=== PATIENT | female | born 1975 | race Two or more races ===

== ENCOUNTER 2020-06-27 10:31 | Outpatient (REF) | payer MEDICARE, MEDICAID, SELFPAY | END 2020-06-27 10:32 | disposition home or self-care (01) | LOC: HO.LAB 10:31 | PROVIDERS: Visit Provider Internal Medicine | DX: Z20.822 Contact with and (suspected) exposure to COVID-19 (principal) | CPT/HCPCS: 36415; C9803; U0003; U0005 ==

== ENCOUNTER 2021-04-17 11:40 | Outpatient (REF) | payer MEDICARE, MEDICAID, SELFPAY | END 2021-04-17 11:41 | disposition home or self-care (01) | LOC: HO.LAB 11:40 | PROVIDERS: PCP Internal Medicine; Visit Provider Internal Medicine | DX: Z20.822 Contact with and (suspected) exposure to COVID-19 (principal) | CPT/HCPCS: C9803; U0003; U0005 ==

== ENCOUNTER 2021-05-21 11:56 | Outpatient (REF) | payer MEDICARE, MEDICAID, SELFPAY ==
[2021-05-21 15:43] LABS: Binax Internal Control QC Valid; Binax Lot number: 9864; Binax Now Covid-19 Ag Negative (Negative)
== END 2021-05-21 11:57 | disposition home or self-care (01) ==
LOC: HO.LAB 11:56
PROVIDERS: Visit Provider Internal Medicine
DX: Z20.822 Contact with and (suspected) exposure to COVID-19 (principal)
CPT/HCPCS: 36415

== ENCOUNTER 2022-02-14 09:02 | Emergency (ER) | payer MEDICARE, MEDICAID, SELFPAY ==
--- NOTE | ~2022-02-14 | CT_ITS ---
CT ANGIOGRAM BRAIN, HEAD CLINICAL INFORMATION: Headache. Right-sided numbness. History of aneurysm. COMPARISON: Head CT 8 04/08/2018. TECHNIQUE: Test bolus sequences followed by intravenous administration 75 mL of Omnipaque 350 intravenous contrast. Helical imaging was performed in the axial plane from the skull base to the vertex. Delayed postcontrast imaging of the head was also performed. The data was processed at the genetic technologist workstation for generation of MIP sequences. Three-dimensional volume rendered reformatted images were also generated at an offline 3-D workstation. The degree of stenosis determined by NASCET criteria. This CT examination was performed using dose optimization techniques as appropriate, variously including the following: *Automated exposure control *Adjustment of mA and/or kV according to patient size (this includes techniques or standardized protocols for targeted exams where dose is matched to indication/reason for exam; i.e. 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 No definite residual/recurrent aneurysm however assessment is very limited due to artifact from the surgical clips. A diagnostic cerebral angiogram could be obtained as clinically indicated for more definitive assessment. No significant arterial stenoses in no acute arterial occlusions. Mild hypoattenuation within the left parietal white matter is stable. If focal neurologic deficit persists, MRI would be more sensitive in evaluation. There is no intracranial hemorrhage, hydrocephalus, extra-axial surface collection, midline shift, or other herniation pattern. Chen to white matter differentiation is diffusely maintained without evidence of an evolved acute territorial infarct. The basilar cisterns are preserved. No significant soft tissue abnormality. No acute osseous abnormality. The paranasal sinuses and the mastoid air cells are well aerated. 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 No definite residual/recurrent aneurysm however assessment is very limited due to artifact from the surgical clips. A diagnostic cerebral angiogram could be obtained as clinically indicated for more definitive assessment. - Mild hypoattenuation within the left parietal white matter is stable. If focal neurologic deficit persists, MRI would be more sensitive in evaluation.
[2022-02-14 09:06] VITALS: BP 167/87; PULSE 86; RESP 16; TEMP 36.6; O2SAT 96; BMI 38.0
--- NOTE | 2022-02-14 09:18 | ED.NEUROSD ---
HPI - Neuro Symptoms/Deficit General Chief Complaint: Neuro Symptoms/Deficit Stated Complaint: Aneurysm clipping R side tingling Time Seen by Provider: 02/14/22 09:18 Source: patient Mode of arrival: ambulatory Limitations: no limitations History of Present Illness HPI Narrative: Patient is a 47 year old female presenting to the emergency department today with right sided facial numbness and a right sided headache for the last 2 days. Patient states that over the last 2 days, she has had right sided facial numbness and a right sided headache. 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 Patient states that her current pain does not feel like when she had an aneurysm. Patient denies any dizziness, lightheadedness, abdominal pain, nausea, vomiting, fever, chills, blurry vision, double vision, loss of vision, chest pain, difficulty breathing, shortness of breath, back pain, night sweats, pain with urination, increased urinary frequency, increased urinary urgency, blood in her urine or stool, syncope or a near syncopal episode, recent trauma or falls, bowel incontinence, bladder incontinence, bowel retention, bladder retention, or any other complaints at this time. Onset (ago): day(s) (2) Severity: mild Associated symptoms: denies other symptoms Treatments Prior to Arrival: none Related Data Allergies Allergy/AdvReac Type Severity Reaction Status Date / Time naproxen [NAPROXEN] Allergy Intermediate RASH Unverified 02/02/20 16:58 adhesive tape [ADHESIVE TAPE] Allergy Mild RASH Unverified 02/02/20 16:58 tramadol [TRAMADOL] Allergy Mild RASH Unverified 02/02/20 16:58 ibuprofen [IBUPROFEN] Allergy Unknown ABDOMINAL Unverified 02/02/20 16:58 PAIN Review of Systems Constitutional: Constitutional: Reports no additional constitutional complaints, Denies chills, Denies fever(s) and Denies night sweats Eyes: Eyes: Reports no additional eye complaints, Denies blurry vision, Denies change in vision, Denies diplopia, Denies eye discharge, Denies loss of vision and Denies eye pain ENT: Denies dizziness Cardiovascular: Cardiovascular: Reports no additional cardiovascular complaints, Denies chest pain, Denies lightheadedness, Denies Loss of Consciousness and Denies dyspnea Respiratory: Respiratory: Reports no additional respiratory complaints and Denies dyspnea Gastrointestinal: Gastrointestinal: Reports no additional gastrointestinal complaints, Denies abdominal pain, Denies melena, Denies hematochezia, Denies change in bowel habits and Denies change in stool character Genitourinary: Genitourinary: Denies hematuria, Denies urinary frequency, Denies dysuria, Denies urinary incontinence, Denies urinary hesitancy and Denies urinary urgency Musculoskeletal: Musculoskeletal: Reports no additional musculoskeletal complaints and Denies tingling Neurologic: Denies dizziness, Denies loss of vision and Denies tingling Comments: right sided facial numbness and right sided headache Psychiatric: Psychiatric: Reports no additional psychiatric complaints Endocrine: Endocrine: Reports no additional endocrine complaints Hematologic/Lymphatic: Hematologic/Lymphatic: Reports no additional hematologic/lymphatic complaints Allergic/Immunologic: Allergic/Immunologic: Reports no additional allergic/immunologic complaints PMFSH Past Medical History Attestation statement: The following information was validated with the patient. Source: old records reviewed Social History Social History Advance Directives: Yes Advance Directives Information Provided: Yes Advance Directives on File: No Physical Exam Vital Signs: Vital Signs: Last Vital Signs Temp 98 F 02/14/22 09:06 Pulse 74 02/14/22 11:44 Resp 16 02/14/22 11:44 BP 149/86 H 02/14/22 11:44 Pulse Ox 97 02/14/22 11:44 O2 Del Method 02/14/22 11:44 BMI result Body Mass Index 38.0 Const: General: cooperative, no acute distress, alert and awake Nutritional Appearance: well nourished Orientation/consciousness: patient oriented x3 Limitations: no limitations HEENT: Head: Yes normal to inspection and Yes atraumatic Ears: hearing grossly normal bilaterally and external ears normal General nose exam: Normal external nose present, no nasal discharge noted and no epistaxis Face and sinus: Yes normal facial exam, No abrasion and No laceration Mouth: Normal oral and palatal mucosa present, no drooling and no muffled voice Eyes: General: appearance normal, both eyes and all related structures Periorbital: periorbital findings normal Eyelids: Yes eyelids normal Conjunctivae: conjunctivae normal Pupils: Equal, round and reactive pupils present EOM: EOMs intact bilaterally Neck: Neck: Yes normal visual inspection, Yes full ROM and Yes no lymphadenopathy Chest: Chest palpation & inspection: normal inspection of the chest Resp: Effort & Inspection: normal respiratory effort and able to speak in complete sentences Auscultation: clear to auscultation bilaterally Cardio: Rate: regular rate Rhythm: regular rhythm GI: Inspection: Yes normal to inspection Neuro: General: patient oriented x3 and moves all extremities Cranial nerves: Yes Equal, round and reactive pupils present Cognition (Neuro): normal cognition Motor exam (neuro): 5/5 motor strength present throughout Sensory Exam: Normal double simultaneous stimulation for sensation Coordination: [id number] test normal Extrem: General: Yes normal to inspection, Yes full ROM and Yes capillary refill normal Psych: Appearance: grossly normal Mental Status: mental status grossly normal Affect: normal affect Attitude: cooperative Thought process: Normal thought process present Thought content: Normal thought content present Insight: Good insight present (Psych) MDM - Neuro Symptoms/Deficit MDM Narrative Medical decision making narrative: Patient is a 47 year old female presenting to the emergency department today with right sided facial numbness and right sided headache. Patient's physical exam was unremarkable. Patient's blood work was unremarkable. Patient's CT/CTA of the head showed no acute process. I explained my physical exam findings as well as all test results to the patient. I answered all questions asked by the patient. Patient describes the sensation as if it starts from just behind her right ear and wraps around the right side of her face. Patient's presentation is most consistent with a trigeminal neuralgia. Patient does not have any focal deficits and has an NIH of 0. I stressed the importance of the patient taking her medication as prescribed. I stressed the importance of the patient following up with her primary care provider and a neurologist. I stressed the importance of the patient returning to the emergency department immediately if her symptoms were to worsen or if she were to develop any dizziness, shortness of breath, difficulty breathing, chest pain, blurry vision, loss of vision, nausea, vomiting, abdominal pain, fever, chills, back pain, or any other complaints. Patient verbalized agreement and understanding with this treatment plan and discharge. Medical Records Attestation: I reviewed the patient's medical records. Lab Data Attestation: I reviewed the patient's lab results. Result diagrams: 02/14/22 09:32 02/14/22 09:32 Labs: Lab Results 02/14/22 02/14/22 02/14/22 Range/Units 09:32 09:32 09:32 WBC 6.5 (4.8-10.8) X10*3/uL RBC 5.08 (4.20-5.50) X10*6/uL Hgb 14.5 (12.0-16.0) g/dl Hct 44.0 (37.0-47.0) % MCV 86.6 (80.0-98.0) fL MCH 28.5 (27.0-33.0) pg MCHC 33.0 (31.0-35.0) g/dl RDW 12.8 (11.0-16.0) % Plt Count 252 (160-400) X10*3/uL MPV 10.0 (9.4-12.3) fL Immature Gran % (Auto) 0.3 (0.0-0.4) % Neut % (Auto) 52.1 (45-73) % Lymph % (Auto) 38.2 (20-40) % Christian % (Auto) 7.8 (2-11) % Eos % (Auto) 1.1 (0-4) % Baso % (Auto) 0.5 (0-2) % Lymph # (Auto) 2.5 (1.2-4.9) X10*3/uL Christian # (Auto) 0.5 (0.1-1.2) X10*3/uL Eos # (Auto) 0.1 (0.0-0.4) X10*3/uL Baso # (Auto) 0.0 (0.0-0.2) X10*3/uL Abs Immat Gran (auto) 0.02 (0.00-0.03) X10*3/uL Absolute Neuts (auto) 3.4 (2.0-8.3) x10*3/uL Absolute Nucleated RBC 0.000 (0.0-0.012) X10*3/uL Nucleated RBC % (auto) 0.0 (0.0-0.2) /100WBC PT 11.7 (10.0-13.1) SEC INR 1.0 (0.9-1.1) APTT 36.3 (26.0-36.4) SEC Sodium 138 (135-145) mmol/L Potassium 3.9 (3.3-5.1) mmol/L Chloride 106 (96-108) mmol/L Carbon Dioxide 20 L (22-29) mmol/L Anion Gap 16 (12-20) BUN 8 L (9-16) mg/dL Creatinine 0.72 (0.5-1.4) mg/dL Estim Creat Clear Calc 113.8 Estimated GFR > 60 Random Glucose 114 (60-115) mg/dL Calcium 9.3 (8.4-10.2) mg/dL Magnesium 2.0 (1.6-2.6) mg/dL Total Bilirubin 0.3 (0.0-1.0) mg/dL AST 27 (5-31) U/L ALT 40 H (0-31) U/L Alkaline Phosphatase 85 (39-117) U/L Total Protein 7.7 (6.5-8.0) g/dL Albumin 4.5 (3.5-5.0) g/dL Imaging Data CT Head / CTA Head: Attestation: I personally reviewed and interpreted this imaging study as follows: My impression: No acute process. Radiologist's impression: CT ANGIOGRAM BRAIN, HEAD CLINICAL INFORMATION: Headache. Right-sided numbness. History of aneurysm.? COMPARISON: Head CT 8 04/08/2018.? TECHNIQUE: Test bolus sequences followed by intravenous administration 75 mL of Omnipaque 350 intravenous contrast. Helical imaging was performed in the axial plane from the skull base to the vertex. Delayed postcontrast imaging of the head was also performed. The data was processed at the anesthesiology technologist workstation for generation of MIP sequences. Three-dimensional volume rendered reformatted images were also generated at an offline 3-D workstation. The degree of stenosis determined by NASCET criteria. This CT examination was performed using dose optimization techniques as appropriate, variously including the following: *Automated exposure control *Adjustment of mA and/or kV according to patient size (this includes techniques or standardized protocols for targeted exams where dose is matched to indication/reason for exam; i.e. 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 No definite residual/recurrent aneurysm however assessment is very limited due to artifact from the surgical clips. A diagnostic cerebral angiogram could be obtained as clinically indicated for more definitive assessment. No significant arterial stenoses in no acute arterial occlusions. Mild hypoattenuation within the left parietal white matter is stable. If focal neurologic deficit persists, MRI would be more sensitive in evaluation. There is no intracranial hemorrhage, hydrocephalus, extra-axial surface collection, midline shift, or other herniation pattern. Chen to white matter differentiation is diffusely maintained without evidence of an evolved acute territorial infarct. The basilar cisterns are preserved. No significant soft tissue abnormality. No acute osseous abnormality. The paranasal sinuses and the mastoid air cells are well aerated.? 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 No definite residual/recurrent aneurysm however assessment is very limited due to artifact from the surgical clips. A diagnostic cerebral angiogram could be obtained as clinically indicated for more definitive assessment. ? - Mild hypoattenuation within the left parietal white matter is stable. If focal neurologic deficit persists, MRI would be more sensitive in evaluation. Dictated By: Gonzalez Dillon MD Signed By: Electronically signed by Gonzalez Dillon MD 02/14/22 1114 Discharge Plan Discharge Clinical Impression: Headache Patient Disposition: Home, Self-Care Instructions: General Headache (ED) Additional Instructions: Follow up with your primary care provider and a neurologist. Return to the emergency department immediately if your symptoms worsen or if you develop any dizziness, shortness of breath, difficulty breathing, chest pain, blurry vision, loss of vision, nausea, vomiting, abdominal pain, fever, chills, back pain, or any other complaints. Referrals: [facility] [place] [facility] [Provider Group] (Call to establish and follow up with a neurologist. ) Kimi Arndt MD [Primary Care Provider] - Interventions: ED Discharge Assessment Last Done: 02/14/22 11:36 Discharge Date/Time: 02/14/22 11:47 Print Language: Senegalese
[2022-02-14 09:35] VITALS: BP 130/67; PULSE 71; RESP 18; O2SAT 97
[2022-02-14 09:36] LABS: MANUAL DIFF FLAG NO
[2022-02-14 09:39] LABS: Basophils Percent Auto 0.5 % (0-2); Eosinophils Absolute Auto 0.1 X10*3/uL (0.0-0.4); Eosinophils Percent Auto 1.1 % (0-4); Hemoglobin 14.5 g/dl (12.0-16.0); Imm Gran Abs Auto 0.02 X10*3/uL (0.00-0.03); Imm Gran Pct Auto 0.3 % (0.0-0.4); Lymphocytes Absolute Auto 2.5 X10*3/uL (1.2-4.9); Lymphocytes Percent Auto 38.2 % (20-40); Mean Corpuscular Hemoglobin 28.5 pg (27.0-33.0); Mean Corpuscular Volume 86.6 fL (80.0-98.0); Monocytes Absolute Auto 0.5 X10*3/uL (0.1-1.2); Monocytes Percent Auto 7.8 % (2-11); Neutrophils Absolute Auto 3.4 x10*3/uL (2.0-8.3); Neutrophils Percent Auto 52.1 % (45-73); Platelet Count 252 X10*3/uL (160-400); Red Blood Count 5.08 X10*6/uL (4.20-5.50); Red Cell Distribution Width 12.8 % (11.0-16.0); White Blood Count 6.5 X10*3/uL (4.8-10.8)
--- NOTE | 2022-02-14 09:44 | PC.NURSE ---
PT reports history of aneurysm,she states that for the past 3 days shes been having increasing headache and tingling mostly to the right side of head. She reports that today symptoms are worse and was referred here by PCP. No neuro deficits noted on assessment. VSS. PT resting quietly, no apparent distress. IV established, and labs collected as documented.
[2022-02-14 09:47] LABS: Prothrombin Time 11.7 SEC (10.0-13.1)
[2022-02-14 09:50] LABS: Partial Thromboplastin Time 36.3 SEC (26.0-36.4)
[2022-02-14 09:53] LABS: Alanine Aminotransferase 40 U/L (0-31); Albumin Level 4.5 g/dL (3.5-5.0); Alkaline Phosphatase 85 U/L (39-117); Anion Gap 16 (12-20); Aspartate Amino Transferase 27 U/L (5-31); Bilirubin Total 0.3 mg/dL (0.0-1.0); Blood Urea Nitrogen 8 mg/dL (9-16); Calcium 9.3 mg/dL (8.4-10.2); Carbon Dioxide 20 mmol/L (22-29); Chloride 106 mmol/L (96-108); Creatinine Clr Calc Pharmacy 113.8; Estimated Glomerular Filt Rate > 60; Glucose Random 114 mg/dL (60-115); Potassium 3.9 mmol/L (3.3-5.1); Sodium 138 mmol/L (135-145); Total Protein 7.7 g/dL (6.5-8.0)
[2022-02-14] MEDS: iohexoL 350 MG/ML 100 ML INFUS..BTL 75 ML IV (10:44)
[2022-02-14 11:44] VITALS: BP 149/86; PULSE 74; RESP 16; O2SAT 97
== END 2022-02-14 11:47 | disposition home or self-care (01) ==
PROVIDERS: Physician Assistant Medical; Emergency Provider Emergency Medicine; PCP Internal Medicine
DX: R51.9 Headache, unspecified (principal); R20.0 Anesthesia of skin; Z79.899 Other long term (current) drug therapy
CPT/HCPCS: 36415; 70496; 80053; 83735; 85025; 85610; 85730; 99284; Q9967

== ENCOUNTER 2022-07-22 11:13 | Emergency (ER) | payer MEDICARE, MEDICAID, SELFPAY ==
--- NOTE | 2022-07-22 11:17 | ED_ITS ---
HPI - Skin/Abscess/Foreign Bdy General Chief complaint: Skin/Abscess/Foreign Body <Hyun May CNP - Last Filed: 07/22/22 11:19> Stated complaint: Abscess R thigh <Hyun May CNP - Last Filed: 07/22/22 11:19> Time Seen by Provider: 07/22/22 14:02 <Hyun May CNP - Last Filed: 07/22/22 11:19> Source: patient <YANI Glover - Last Filed: 07/22/22 16:38> Mode of arrival: ambulatory <YANI Glover - Last Filed: 07/22/22 16:38> History of Present Illness HPI narrative: 47-year-old female with a past medical history of abscesses presenting to the ED complaining of 2 abscesses to right internal thigh x2-3 days. Reports increasing pain and erythema. Denies open/draining, fever, abdominal pain, nausea/vomiting, dysuria/hematuria, inability/difficulty to have BM/urinate <YANI Glover - Last Filed: 07/22/22 16:38> MD complaint: abscess/boil <YANI Glover - Last Filed: 07/22/22 16:38> Related Data Home medications: Previous Rx's Medication Instructions Recorded cephalexin 500 mg capsule 500 mg PO QID 7 days #28 caps 07/22/22 doxycycline hyclate 100 mg tablet 100 mg PO BID 7 days #14 tabs 07/22/22 <Hyun May CNP - Last Filed: 07/22/22 11:19> Allergies/Adverse reactions: Allergies Allergy/AdvReac Type Severity Reaction Status Date / Time naproxen [NAPROXEN] Allergy Intermediate RASH Unverified 02/02/20 16:58 adhesive tape [ADHESIVE TAPE] Allergy Mild RASH Unverified 02/02/20 16:58 tramadol [TRAMADOL] Allergy Mild RASH Unverified 02/02/20 16:58 ibuprofen [IBUPROFEN] Allergy Unknown ABDOMINAL Unverified 02/02/20 16:58 PAIN <Hyun May CNP - Last Filed: 07/22/22 11:19> Review of Systems Review of Systems: Constitutional: No Fever, No Chills ENT/Mouth: No Ear Pain, No Nasal Congestion, No sore throat, No Rhinorrhea, No Swallowing Difficulty Cardiovascular: No Chest Pain, No SOB Respiratory: No Cough, No Sputum Gastrointestinal: No Nausea, No Vomiting, No Diarrhea, No Constipation, No Abdominal pain Genitourinary: No Dysuria, No Urinary Frequency, No Hematuria, No Flank Pain Musculoskeletal: No joint pain, No Myalgias, No Joint Swelling Skin: + Skin Lesions, No rash Neuro: No Weakness, No Numbness, No Paresthesias <YANI Glover - Last Filed: 07/22/22 16:38> Yes all other systems are reviewed and are negative <YANI Glover - Last Filed: 07/22/22 16:38> Constitutional: Constitutional: Reports as per HPI <YANI Glover - Last Filed: 07/22/22 16:38> [facility] Past Medical History Attestation statement: The following information was validated with the patient. <YANI Glover - Last Filed: 07/22/22 16:38> Social History Social History: Social History Advance Directives: No Advance Directives Information Provided: No <Hyun May CNP - Last Filed: 07/22/22 11:19> Physical Exam Vital Signs: Vital Signs: Last Vital Signs Temp 97.5 F 07/22/22 11:19 Pulse 80 07/22/22 11:19 Resp 18 07/22/22 11:19 BP 114/74 07/22/22 11:19 Pulse Ox 98 07/22/22 11:19 O2 Del Method 07/22/22 11:19 BMI result Body Mass Index 36.2 <Hyun May CNP - Last Filed: 07/22/22 11:19> Vital Signs: Last Vital Signs Temp 97.5 F 07/22/22 11:19 Pulse 80 07/22/22 11:19 Resp 18 07/22/22 11:19 BP 114/74 07/22/22 11:19 Pulse Ox 98 07/22/22 11:19 O2 Del Method 07/22/22 11:19 BMI result Body Mass Index 36.2 <YANI Glover - Last Filed: 07/22/22 16:38> Const: General: cooperative, healthy appearing and no acute distress <YANI Glover - Last Filed: 07/22/22 16:38> Orientation/consciousness: patient oriented x3 <YANI Glover - Last Filed: 07/22/22 16:38> Limitations: no limitations <YANI Glover - Last Filed: 07/22/22 16:38> HEENT: Head: Yes normal to inspection and Yes atraumatic <YANI Glover - Last Filed: 07/22/22 16:38> Ears: hearing grossly normal bilaterally <YANI Glover - Last Filed: 07/22/22 16:38> General nose exam: Normal external nose present <YANI Glover - Last Filed: 07/22/22 16:38> Face and sinus: Yes normal facial exam <YANI Glover - Last Filed: 07/22/22 16:38> Eyes: General: appearance normal, both eyes and all related structures <YANI Glover - Last Filed: 07/22/22 16:38> EOM: EOMs intact bilaterally <YANI Glover - Last Filed: 07/22/22 16:38> Neck: Neck: Yes normal visual inspection and Yes no meningeal signs <YANI Glover - Last Filed: 07/22/22 16:38> Resp: Effort & Inspection: normal respiratory effort and no respiratory distress <YANI Glover - Last Filed: 07/22/22 16:38> Cardio: Rate: regular rate <YANI Glover - Last Filed: 07/22/22 16:38> Skin: Other: + 2 small fluctuant abscesses to right internal thigh with surrounding erythema/warmth. Tender to palpation. No pointing/active drainage. +1 small indurated abscess to right buttock with mild erythema. No Marisela's gangrene <YANI Glover - Last Filed: 07/22/22 16:38> Rashes: no rashes <YANI Glover - Last Filed: 07/22/22 16:38> Wounds: no wounds <YANI Glover - Last Filed: 07/22/22 16:38> Neuro: General: patient oriented x3, tone normal and no meningeal signs <YANI Glover - Last Filed: 07/22/22 16:38> Gait exam (Neuro): Normal gait present <YANI Glover Last Filed: 07/22/22 16:38> Extrem: General: Yes normal to inspection <YANI Glover Last Filed: 07/22/22 16:38> Course Course Course Narrative: This is an RME: Additional HPI, ROS, PE not included below will be deferred to primary provider. Patient is a 47 year old female who comes to the emergency department for evaluation of 2 cysts to the right medial upper thigh with surrounding redness and swelling and pain. Onset 3 days ago, progressively worsening. Has had similar in the past. Plan: placed back in waiting room pending bed availability <Hyun May CNP - Last Filed: 07/22/22 11:19> Medications Administered Discontinued Medications Generic Name Dose Route Start Last Admin Trade Name Freq PRN Reason Stop Dose Admin Lidocaine/Epinephrine 20 ml 07/22/22 14:42 07/22/22 15:32 Lidocaine Hcl 2%/Epi 1:100,000 20 Ml Vial INFILTRATI 07/22/22 14:43 20 ml ONCE ONE Administration <Hyun May CNP - Last Filed: 07/22/22 11:19> Medications Administered Discontinued Medications Generic Name Dose Route Start Last Admin Trade Name Freq PRN Reason Stop Dose Admin Lidocaine/Epinephrine 20 ml 07/22/22 14:42 07/22/22 15:32 Lidocaine Hcl 2%/Epi 1:100,000 20 Ml Vial INFILTRATI 07/22/22 14:43 20 ml ONCE ONE Administration <YANI Glover - Last Filed: 07/22/22 16:38> Medical Decision Making Medical Decision Making MDM Narrative: 47-year-old female with a past medical history of abscesses presenting to the ED complaining of 2 abscesses to right internal thigh x2-3 days. On exam vital signs stable, NAD, nontoxic appearing, physical exam as above. 2 abscesses needing I&D. Mild surrounding cellulitis Plan: I & D, p.o. antibiotics Please refer to course for remaining clinical decision making, interpretation of labs/imaging results, and discussions with consultants and/or family members. <YANI Glover - Last Filed: 07/22/22 16:38> Differential Diagnosis Differential Diagnoses: The differential diagnosis associated with the presentation includes <YANI Glover - Last Filed: 07/22/22 16:38> as above <YANI Glover - Last Filed: 07/22/22 16:38> Admission/Observation Consideration of admission/observation: Escalation of care including admission/observation considered <YANI Glover - Last Filed: 07/22/22 16:38> Lab Data MDM Lab Attestation statement: I reviewed the patient's lab results. <YANI Glover - Last Filed: 07/22/22 16:38> External Record Review External record reviewed: Office record and Outpatient record <YANI Glover - Last Filed: 07/22/22 16:38> Prescription Management I considered prescription management with: Pain Medication and Antibiotic <YANI Glover - Last Filed: 07/22/22 16:38> Procedures Abscess I/D Site: lower extremity <YANI Glover - Last Filed: 07/22/22 16:38> Side (if applicable): right (internal thigh, 2 abscesses) <YANI Glover - Last Filed: 07/22/22 16:38> Local Anesthetic: lidocaine 1% and with epi <YANI Glover - Last Filed: 07/22/22 16:38> Amount of anesthesia used (mL): 9 <YANI Glover Last Filed: 07/22/22 16:38> Technique: incised with blade <YANI Glover - Last Filed: 07/22/22 16:38> Sent for culture/gram staining?: No <YANI Glover - Last Filed: 07/22/22 16:38> Irrigation: No <YANI Glover Last Filed: 07/22/22 16:38> Packing used?: none <YANI Glover Last Filed: 07/22/22 16:38> Discharge Plan Discharge Clinical Impression: Abscess of skin or subcutaneous tissue, Cellulitis <Hyun May CNP - Last Filed: 07/22/22 11:19> Patient Disposition: Home, Self-Care <Hyun May CNP - Last Filed: 07/22/22 11:19> Instructions: Cellulitis (ED), Abscess (ED), Abscess Follow-up (ED) <Hyun May CNP - Last Filed: 07/22/22 11:19> Additional Instructions: You have 2 abscesses that were drained today in the emergency department. Your discharge abscess should be taking care with antibiotics. Doxycycline and Keflex are antibiotics please take as prescribed. Apply warm compresses at home If area is growing, turns to a pointing stafford, has active drainage or you have fever return to the ED <Hyun May CNP - Last Filed: 07/22/22 11:19> Prescriptions: New cephalexin 500 mg capsule 500 mg PO QID 7 Days Qty: 28 0RF doxycycline hyclate 100 mg tablet 100 mg PO BID 7 Days Qty: 14 0RF <Hyun May CNP - Last Filed: 07/22/22 11:19> Referrals: Kimi Arndt MD [Primary Care Provider] - 3 days <Hyun May CNP - Last Filed: 07/22/22 11:19>
[2022-07-22 11:19] VITALS: BP 114/74; PULSE 80; RESP 18; TEMP 36.4; O2SAT 98; BMI 36.2
[2022-07-22] MEDS: Lidocaine HCl 2%/Epi 1:100,000 20 ML VIAL INFILTRATI (15:32)
== END 2022-07-22 16:47 | disposition home or self-care (01) ==
PROVIDERS: Emergency Provider Student in an Organized Health Care Education/Training Program; PCP Internal Medicine
DX: L02.415 Cutaneous abscess of right lower limb (principal); L03.115 Cellulitis of right lower limb; Z79.899 Other long term (current) drug therapy
CPT/HCPCS: 10061; 99283; 99284

== ENCOUNTER → 2022-07-28 13:32 | Outpatient (BNVA) | payer MEDICARE, MEDICAID, SELFPAY | PROVIDERS: PCP Internal Medicine; Referring Provider Internal Medicine; Visit Provider Surgery | DX: L02.415 Cutaneous abscess of right lower limb (principal) | CPT/HCPCS: 99202 ==